=== PATIENT | male | born 1995 | race Two or more races ===

== ENCOUNTER 2019-09-23 16:01 | Emergency (ER) | payer BC ==
--- NOTE | 2019-09-23 16:09 | EDM.PDOC ---
ED HPI GENERAL MEDICAL PROBLEM - General Chief Complaint: Skin Complaint Stated Complaint: LEFT CHEEK PIMPLE Time Seen by Provider: 09/23/19 16:09 Source of Information: Reports: Patient History Limitations: Reports: No Limitations - History of Present Illness INITIAL COMMENTS - FREE TEXT/NARRATIVE: HISTORY AND PHYSICAL: History of present illness: Patient is a 24-year-old male who presents to the emergency room today with complaints of a abscess to his left cheek. Patient states that approximately 2- 3 weeks ago he noticed a pimple to his left cheek which he attempted to express himself. He states he did not get much out of it. He noticed some redness and irritation. He has been shaving his face since. Area continues to be red and irritated. He denies any fever, chills, jaw, sinus or ear pain. Review of systems: As per history of present illness and below otherwise all systems reviewed and negative. Past medical history: As per history of present illness and as reviewed below otherwise noncontributory. Surgical history: As per history of present illness and as reviewed below otherwise noncontributory. Social history: See social history for further information Family history: As per history of present illness and as reviewed below otherwise noncontributory. Physical exam: General: Well-developed and well nourished 24-year-old male. Alert and oriented. Nontoxic appearing and in no acute distress. HEENT: Atraumatic, normocephalic, pupils equal and reactive bilaterally, negative for conjunctival pallor or scleral icterus, mucous membranes moist, TMs normal bilaterally, throat clear, neck supple, nontender, trachea midline. No drooling or trismus noted. No meningeal signs. No hot potato voice noted. Lungs: Clear to auscultation, breath sounds equal bilaterally, chest nontender. Heart: S1S2, regular rate and rhythm without overt murmur Abdomen: Soft, nondistended, nontender. Skin: Quarter size area of erythema, nonfluctuant, firm to palpation on left cheek. Otherwise skin is intact, warm, dry. No lesions or rashes noted. Extremities: Atraumatic, moves all extremities per self without difficulty or deficits, negative for cords or calf pain. Neurovascular unremarkable. Neuro: Awake, alert, oriented. Cranial nerves II through XII unremarkable. Cerebellum unremarkable. Motor and sensory unremarkable throughout. Exam nonfocal. Notes: PCN allergy, will treat with Bactrim. Supportive care measures were reviewed and discussed. Voices understanding and is agreeable to plan of care. Denies any further questions or concerns at this time. Diagnostics: None Therapeutics: None Prescription: Bactrim DS Impression: Folliculitis, r/o cellulitis Plan: 1. Gentle warm heat compresses to face 4 x daily 2. Take the antibiotic as prescribed. Tylenol and/or ibuprofen as needed for pain management. 3. Please follow up with primary care as we discussed. Return to the ED as needed and as discussed. Definitive disposition and diagnosis as appropriate pending reevaluation and review of above. Left Cheek Pain Score (Numeric/FACES): 1 - Related Data Allergies Allergy/AdvReac Type Severity Reaction Status Date / Time Penicillins Allergy Itching Verified 09/23/19 16:14 Home Meds: Home Meds Sulfamethoxazole/Trimethoprim [Bactrim Ds Tablet] 1 each PO BID 7 Days #14 tablet 09/23/19 [Rx] ED ROS GENERAL - Review of Systems Review Of Systems: Comprehensive ROS is negative, except as noted in HPI. ED EXAM, SKIN/RASH Exam: See Below (See dictation) Course - Vital Signs Last Recorded V/S: Last Vital Signs Temp 96.5 F 09/23/19 16:14 Pulse 92 09/23/19 16:14 Resp 18 09/23/19 16:14 BP 142/79 H 09/23/19 16:14 Pulse Ox 96 09/23/19 16:14 Departure - Departure Time of Disposition: 16:24 Disposition: Home, Self-Care 01 Clinical Impression: Folliculitis - Discharge Information Prescriptions: Sulfamethoxazole/Trimethoprim [Bactrim Ds Tablet] 1 each PO BID 7 Days #14 tablet Instructions: Folliculitis Referrals: PCP,None [Primary Care Provider] - Forms: ED Department Discharge Additional Instructions: The following information is given to patients seen in the emergency department who are being discharged to home. This information is to outline your options for follow-up care. We provide all patients seen in our emergency department with a follow-up referral. The need for follow-up, as well as the timing and circumstances, are variable depending upon the specifics of your emergency department visit. If you don't have a primary care physician on staff, we will provide you with a referral. We always advise you to contact your personal physician following an emergency department visit to inform them of the circumstance of the visit and for follow-up with them and/or the need for any referrals to a consulting specialist. The emergency department will also refer you to a specialist when appropriate. This referral assures that you have the opportunity for follow-up care with a specialist. All of these measure are taken in an effort to provide you with optimal care, which includes your follow-up. Under all circumstances we always encourage you to contact your private physician who remains a resource for coordinating your care. When calling for follow-up care, please make the office aware that this follow-up is from your recent emergency room visit. If for any reason you are refused follow-up, please contact the [facility] Emergency Department at and asked to speak to the emergency department charge nurse. [facility] [address] [place] [id number] [facility] [address] [place] [id number] 1. Gentle warm heat compresses to face 4 x daily. No shaving until site has cleared 2. Take the antibiotic as prescribed. Tylenol and/or ibuprofen as needed for pain management. 3. Please follow up with primary care as we discussed. Return to the ED as needed and as discussed.
== END 2019-09-23 16:32 | disposition home or self-care (01) ==
LOC: MW.ED 16:01
DX: L73.9 Follicular disorder, unspecified (principal); Z88.0 Allergy status to penicillin
CPT/HCPCS: 99282; 99283

== ENCOUNTER 2019-12-07 03:32 | Emergency (ER) | payer BC, OTHER ==
[2019-12-07] MEDS ORDERED: LORazepam 2 MG/ML SDV IVPUSH ONE (03:42)
[2019-12-07] MEDS ORDERED: Sodium Chloride 0.9% 1,000 ML IV ONE (03:43)
--- NOTE | 2019-12-07 04:03 | EDM.PDOC ---
ED HPI GENERAL MEDICAL PROBLEM - General Chief Complaint: Cardiovascular Problem Stated Complaint: HIGH HEART RATE Time Seen by Provider: 12/07/19 03:36 Source of Information: Reports: Patient - History of Present Illness INITIAL COMMENTS - FREE TEXT/NARRATIVE: CC anxiety HPI: This is a somewhat bizarre 24-year-old male's been running on a treadmill for the past several hours because he cannot fall asleep. This all started when the patient drank a "abena" energy drink patient comes in here tonight because he is concerned that his heart rate was 180 but when he stopped running it precipitously dropped down to the 80s. No syncope no unexplained shortness of breath no chest pain. Patient says that he is exercising to lose weight but also has some anxiety over work. He denies suicidal or homicidal ideation auditory or visual hallucinations PMHX/PSHX: Denies any medical or surgical history Social History: Negative for tobacco, negative for alcohol, negative for street drugs or marijuana Family history: Hypertension ROS: see chart PE: VS afebrile vital signs stable General: No apparent distress Head: Atraumatic normocephalic no lumps bumps or bruises Eyes: EOMI PERRLA Ears: TMs intact no hemotympanum no signs of infection no mastoid tenderness Nose: No epistaxis nares patent no septal wall hematoma Throat: No pharyngeal erythema or exudate no tonsillar enlargement Neck: Supple, no cervical lymphadenopathy Chest wall: No point tenderness Heart: Regular rate and rhythm without murmur gallop or rub Lungs: Clear to auscultation and percussion without rales rhonchi or wheeze Abdomen: Soft nontender nondistended without guarding rigidity or rebound Neck: No spinal point tenderness full range of motion in all 6 directions Back: No spinal paraspinal or CVA tenderness Extremities: full rom through out. no effusions skin: Warm dry intact no rashes neurologic: cranial nerves II through XII intact. No focal motor or sensory deficits noted MDM: Differential diagnosis: Hyper thyroid drug abuse arrhythmia ED course: Patient is fit and well appearing. His heart and lung exams are unremarkable. EKG shows normal sinus rhythm at 80 bpm. 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 Patient's blood pressure is normal. He does not wish any further work-up. I tried to reassure him that his heart rate coming down at the cessation of exercise is normal. No other concerning symptoms such as concern for pulmonary embolism aortic dissection acute coronary syndrome arrhythmias etc. I had a long talk with the patient about his anxiety and why he is up all night exercising. Patient is not very forthcoming with information but does not appear to be gravely disabled or suicidal. Therefore we will encourage him to follow-up in clinic. Diagnosis: Anxiety Disposition: Home - Related Data Allergies Allergy/AdvReac Type Severity Reaction Status Date / Time Penicillins Allergy Anaphylactic Verified 12/07/19 03:47 Shock Home Meds: Home Meds . [No Known Home Meds] 12/07/19 [History] Past Medical History - Past Health History Medical/Surgical History: Denies Medical/Surgical History Social & Family History - Family History Family Medical History: Noncontributory - Caffeine Use Caffeine Use: Reports: Coffee, Soda ED ROS GENERAL - Review of Systems Review Of Systems: Comprehensive ROS is negative, except as noted in HPI. ED EXAM, GENERAL - Physical Exam Exam: See Below Free Text/Narrative:: See my dictation Course - Vital Signs Last Recorded V/S: Last Vital Signs Temp 36.4 C 12/07/19 03:35 Pulse 81 12/07/19 03:35 Resp 18 12/07/19 03:35 BP 149/89 H 12/07/19 03:35 Pulse Ox 99 12/07/19 03:35 - Orders/Labs/Meds Orders: Active Orders 24 hr Category Date Time Status Chest 1V Frontal [CR] Stat Exams 12/07/19 03:42 Ordered CBC WITH AUTO DIFF [HEME] Stat Lab 12/07/19 03:41 Ordered COMPREHENSIVE METABOLIC PN,CMP [CHEM] Stat Lab 12/07/19 03:41 Ordered CREATINE KINASE,CK [CHEM] Stat Lab 12/07/19 03:42 Ordered DRUG SCREEN, URINE [URCHEM] Stat Lab 12/07/19 03:41 Ordered TROPONIN I [CHEM] Stat Lab 12/07/19 03:41 Ordered TSH [CHEM] Stat Lab 12/07/19 03:42 Ordered Sodium Chloride 0.9% [Normal Saline] 1,000 ml Med 12/07/19 03:43 Ordered IV ONETIME Medication Orders Sodium Chloride (Normal Saline) 1,000 mls @ 1,000 mls/hr IV ONETIME ONE Stop: 12/07/19 04:42 Meds: Medications Generic Name Dose Route Start Last Admin Trade Name Venu PRN Reason Stop Dose Admin Sodium Chloride 1,000 mls @ 1,000 mls/hr 12/07/19 03:43 Normal Saline IV 12/07/19 04:42 ONETIME ONE Discontinued Medications Generic Name Dose Route Start Last Admin Trade Name Venu PRN Reason Stop Dose Admin Lorazepam 1 mg 12/07/19 03:42 Ativan IVPUSH 12/07/19 03:43 ONETIME ONE Departure - Departure Time of Disposition: 04:00 Disposition: Home, Self-Care 01 Clinical Impression: Anxiety Additional Instructions: Avoid high caffeinated high sugar content energy drinks. Follow-up in clinic for further care. Return here for chest pain shortness of breath or feeling like you are going to pass out. Follow up as soon as possible at : [facility] clinic. [address] [place] [id number] tel: or fllow up at : [address] [address] tel: Sepsis Event Note - Evaluation Sepsis Screening Result: No Definite Risk - Focused Exam Vital Signs: Vital Signs Temp Pulse Resp BP Pulse Ox 12/07/19 03:35 36.4 C 81 18 149/89 H 99 Date Exam was Performed: 12/07/19 Time Exam was Performed: 03:57 - My Orders Last 24 Hours: My Active Orders 12/07/19 03:41 CBC WITH AUTO DIFF [HEME] Stat COMPREHENSIVE METABOLIC PN,CMP [CHEM] Stat DRUG SCREEN, URINE [URCHEM] Stat TROPONIN I [CHEM] Stat 12/07/19 03:42 Chest 1V Frontal [CR] Stat CREATINE KINASE,CK [CHEM] Stat TSH [CHEM] Stat 12/07/19 03:43 Sodium Chloride 0.9% [Normal Saline] 1,000 ml IV ONETIME - Assessment/Plan Last 24 Hours: My Active Orders 12/07/19 03:41 CBC WITH AUTO DIFF [HEME] Stat COMPREHENSIVE METABOLIC PN,CMP [CHEM] Stat DRUG SCREEN, URINE [URCHEM] Stat TROPONIN I [CHEM] Stat 12/07/19 03:42 Chest 1V Frontal [CR] Stat CREATINE KINASE,CK [CHEM] Stat TSH [CHEM] Stat 12/07/19 03:43 Sodium Chloride 0.9% [Normal Saline] 1,000 ml IV ONETIME
== END 2019-12-07 04:05 | disposition home or self-care (01) ==
LOC: MW.ED 03:32
DX: F41.9 Anxiety disorder, unspecified (principal); Z88.0 Allergy status to penicillin
CPT/HCPCS: 80305-QW; 99285-25